=== PATIENT | female | born 1955 | race Caucasian/White ===

== ENCOUNTER 2021-08-06 14:19 | Observation (INO) | payer BC, OTHER ==
[~2021-08-06] VITALS: Ht 149.9 cm; Wt 82.6 kg
[~2021-08-06 14:19] MED LIST: BUSPAR15 MG PO; Z.0.BENAZEPRIL HCL40 PO
[2021-08-06] MEDS ORDERED: SODIUM CHLORIDE 0.9% 1000ML 1,000 ML IV SCH (15:00)
[2021-08-06 15:13] LABS: BASOPHILS % 0.3 % (0.0-1.0); EOSINOPHILS # (AUTO) 0.1 (0.0-0.4); EOSINOPHILS % 0.4 % (0.0-6.0); HEMATOCRIT 35.3 % (34.2-44.1); HEMOGLOBIN 10.5 g/dL (12.0-16.0); LYMPHOCYTES # (AUTO) 1.3 (1.0-3.2); LYMPHOCYTES % 8.9 % (18.0-39.1); MEAN CORPUSCULAR HEMOGLOBIN 25.1 pg (28-32); MEAN CORPUSCULAR HGB CONC 29.7 g/dL (31-35); MEAN CORPUSCULAR VOLUME 84.4 fL (81-99); MONOCYTES # (AUTO) 1.3 (0.2-0.8); MONOCYTES % 8.5 % (4.4-11.3); NEUTROPHILS # (AUTO) 11.9 (2.1-6.9); NEUTROPHILS % 80.1 % (38.7-80.0); PLATELET COUNT 832 x10e3/uL (140-360); RED BLOOD COUNT 4.18 x10e6/uL (3.6-5.1); RED CELL DISTRIBUTION WIDTH 14.7 % (11.7-14.4)
[2021-08-06 15:34] LABS: ALBUMIN 2.2 g/dL (3.5-5.0); ALBUMIN/GLOBULIN RATIO 0.5 (0.8-2.0); ANION GAP 18.4 mmol/L (8-16); CALCIUM 9.7 mg/dL (8.4-10.2); CREATININE, SERUM 0.63 mg/dL (0.57-1.11); POTASSIUM 4.4 mmol/L (3.5-5.1)
[2021-08-06] MEDS ORDERED: IOPAMIDOL 370 MG/ML 200 ML INFUS..BTL INJ ONE (18:18)
[2021-08-06] MEDS ORDERED: SODIUM CHLORIDE 0.9% 50ML 50 ML ONE (18:18)
[2021-08-06] MEDS ORDERED: FAMOTIDINE 20 MG TAB PO ONE (18:45)
[2021-08-06] MEDS ORDERED: FAMOTIDINE 20 MG/2 ML VIAL IV STA (19:08)
[2021-08-06] MEDS: ONDANSETRON HCL INJ 2MG/ML 2ML 2 MG/ML VIAL IV PRN ×2 (19:12→21:52)
[2021-08-06] MEDS: Morphine 2mg Syringe 2 MG/ML SYR IV PRN ×2 (19:12→21:52)
[2021-08-06] MEDS ORDERED: FAMOTIDINE 20 MG/2 ML VIAL IV ONE (19:18)
[2021-08-06 19:30] LABS: THYROID STIMULATING HORMONE 0.65 uIU/mL (0.350-4.940)
[2021-08-06] MEDS: SODIUM CHLORIDE 0.9% 1000ML 1,000 ML IV SCH (20:15)
[2021-08-06] MEDS ORDERED: ASPIRIN 81 MG CHEW TAB PO ONE (20:15)
[2021-08-06] MEDS ORDERED: Morphine 2mg Syringe 2 MG/ML SYR IV PRN (20:15)
[2021-08-06] MEDS ORDERED: GUAIFENESIN 200 MG/10 ML UDC PO ONE (20:45)
[2021-08-06 21:45] VITALS: BP 113/66
[2021-08-06 21:53] VITALS: BP 132/89
[2021-08-06] MEDS ORDERED: BIOTIN2500 MCG (23:58)
[2021-08-06] MEDS ORDERED: VITAMIN D310 MC1 PO (23:58)
[2021-08-06] MEDS ORDERED: TYLENOL ES PO (23:58)
[2021-08-06] MEDS ORDERED: [UNRECOGNIZED DRUG - OTHER] PO (23:58)
[2021-08-06] MEDS ORDERED: TESSALON PEARLS PO (23:58)
[2021-08-06] MEDS ORDERED: BENADRYL25 M1 PO (23:58)
[2021-08-06] MEDS ORDERED: ZINC PO (23:58)
[2021-08-06] MEDS ORDERED: MELATONIN3 MG PO (23:58)
[2021-08-07] VITALS (8 sets, daily range): BP systolic 113–148; BP diastolic 65–78
[2021-08-07] MEDS: SODIUM CHLORIDE 0.9% 1000ML 1,000 ML IV SCH ×3 (00:43→17:32)
[2021-08-07] MEDS: Morphine 2mg Syringe 2 MG/ML SYR IV PRN ×6 (01:30→20:37)
[2021-08-07 06:00] LABS: BASOPHILS # (AUTO) 0.1 (0.0-0.1); BASOPHILS % 0.6 % (0.0-1.0); EOSINOPHILS # (AUTO) 0.1 (0.0-0.4); EOSINOPHILS % 0.7 % (0.0-6.0); HEMATOCRIT 29.9 % (34.2-44.1); LYMPHOCYTES # (AUTO) 1.5 (1.0-3.2); LYMPHOCYTES % 12.4 % (18.0-39.1); MEAN CORPUSCULAR HEMOGLOBIN 25.3 pg (28-32); MEAN CORPUSCULAR HGB CONC 30.1 g/dL (31-35); MONOCYTES # (AUTO) 1.4 (0.2-0.8); MONOCYTES % 11.2 % (4.4-11.3); NEUTROPHILS # (AUTO) 8.8 (2.1-6.9); NEUTROPHILS % 72.8 % (38.7-80.0); PLATELET COUNT 662 x10e3/uL (140-360); RED BLOOD COUNT 3.56 x10e6/uL (3.6-5.1); RED CELL DISTRIBUTION WIDTH 14.8 % (11.7-14.4)
[2021-08-07] MEDS: ONDANSETRON HCL INJ 2MG/ML 2ML 2 MG/ML VIAL IV PRN ×4 (06:27→20:37)
[2021-08-07 06:33] LABS: CREATINE KINASE MB 0.6 ng/mL (0-5.0)
[2021-08-07 13:55] LABS: CREATINE KINASE MB 0.8 ng/mL (0-5.0)
[2021-08-07] MEDS: BENZONATATE 100 MG CAP PO SCH ×2 (16:38→21:07)
[2021-08-07] MEDS: METOPROLOL TARTRATE 25 MG TAB PO SCH (16:38)
[2021-08-08 00:40] VITALS: BP 137/74
[2021-08-08] MEDS: SODIUM CHLORIDE 0.9% 1000ML 1,000 ML IV SCH ×3 (01:40→09:12)
[2021-08-08 03:44] VITALS: BP 129/85
[2021-08-08 08:00] VITALS: BP 140/72
[2021-08-08] MEDS: BENZONATATE 100 MG CAP PO SCH (08:28)
[2021-08-08] MEDS: METOPROLOL TARTRATE 25 MG TAB PO SCH (08:29)
[2021-08-08] MEDS: Morphine 2mg Syringe 2 MG/ML SYR IV PRN (08:40)
[2021-08-08 09:56] LABS: CREATINE KINASE MB 0.9 ng/mL (0-5.0)
[2021-08-08] MEDS ORDERED: HYDROMORPHONE 1MG/1ML INJ IV STA (09:57)
[2021-08-08] MEDS: ONDANSETRON HCL INJ 2MG/ML 2ML 2 MG/ML VIAL IV PRN (10:13)
[2021-08-08 12:00] VITALS: BP 141/71
[2021-08-08] MEDS ORDERED: METOPROLOL TART25 MG PO (13:50)
[2021-08-08] MEDS ORDERED: MOBIC15 MG PO (13:51)
== END 2021-08-08 15:08 | disposition home or self-care (01) ==
LOC: ER 14:31 → ERHOLD 20:30 → INTOOBSV 20:30 → MED/SURG 21:56
DX: R05.9 Cough, unspecified (principal); C55 Malignant neoplasm of uterus, part unspecified; C78.6 Secondary malignant neoplasm of retroperitoneum and peritoneum; I10 Essential (primary) hypertension; Z20.822 Contact with and (suspected) exposure to COVID-19
CPT/HCPCS: 36415 ×2; 71045; 71260; 74177; 80053; 82550 ×2; 82553 ×2; 84436; 84443; 84479; 84484 ×3; 85025 ×2; 85379; 86850; 86900; 93005; 94799 ×2; 99284; G0378 ×3; J1170; J2270 ×3; J2405 ×3; J7030 ×3; Q9967; U0002